=== PATIENT | male | born 1975 | race Native Hawaiian/Other Pacific Islander ===

== ENCOUNTER 2020-04-28 13:15 | Emergency (ER) | payer OTHER ==
[~2020-04-28] VITALS: Ht 180.3 cm; Wt 78.0 kg
[2020-04-28 13:29] VITALS: BP 118/79; TEMP 97.7
[2020-04-28 14:08] LABS: PLATELET COUNT 211 K/uL (142-355)
[2020-04-28 14:20] LABS: POTASSIUM 4.1 mmol/L (3.6-5.2)
== END 2020-04-28 15:24 | disposition home or self-care (01) ==
LOC: ED 13:15
PROVIDERS: Family Medicine
DX: J20.9 Acute bronchitis, unspecified (principal); G62.89 Other specified polyneuropathies; F17.210 Nicotine dependence, cigarettes, uncomplicated
CPT/HCPCS: 80053; 81000; 85027; 93005; 99283

== ENCOUNTER 2021-09-12 08:18 | Emergency (ER) | payer OTHER ==
[~2021-09-12] VITALS: Ht 180.3 cm; Wt 77.1 kg
[2021-09-12 08:57] LABS: PLATELET COUNT 213 K/uL (142-355)
[2021-09-12 09:16] LABS: POTASSIUM 4.2 mmol/L (3.6-5.2)
[2021-09-12] MEDS ORDERED: KETO10TA34 PO (10:21)
[2021-09-12 10:39] VITALS: BP 127/91; TEMP 99.1
== END 2021-09-12 10:45 | disposition home or self-care (01) ==
LOC: ED 08:18
PROVIDERS: Emergency Medicine Emergency Medical Services
DX: N23 Unspecified renal colic (principal)
CPT/HCPCS: 36415; 80048; 80307; 81002; 85027; 96360; 96374; 99284; J1885